=== PATIENT | female | born 1960 | race Caucasian/White ===

== ENCOUNTER 2018-05-04 23:57 | Emergency (ER) | payer OTHER ==
[~2018-05-04] VITALS: Ht 170.2 cm; Wt 92.7 kg
[2018-05-04 23:59] VITALS: BP 152/69
[2018-05-05] MEDS ORDERED: albuterol 2.5 MG/3 ML nebule NEB ONE (00:35)
== END 2018-05-05 00:45 | disposition left against medical advice (07) ==
LOC: ER 23:58
DX: R06.02 Shortness of breath (principal); Z53.21 Procedure and treatment not carried out due to patient leaving prior to being seen by health care provider

== ENCOUNTER 2018-09-22 23:58 | Emergency (ER) | payer MEDICARE, OTHER ==
[~2018-09-22] VITALS: Ht 172.7 cm; Wt 100.0 kg
[2018-09-23] MEDS ORDERED: LORazepam 1 MG tablet PO ONE (00:30)
[2018-09-23 01:00] LABS: BASOPHILS # (AUTO) 0.1 X10'3 (0-0.2); BASOPHILS % (AUTO) 0.6 % (0-1); EOSINOPHILS # (AUTO) 0.2 X10'3 (0-0.9); EOSINOPHILS % (AUTO) 1.9 % (0-6); HEMATOCRIT 41.8 % (35.0-45.0); HEMOGLOBIN 13.8 g/dl (12.0-16.0); LYMPHOCYTES # (AUTO) 2.2 X10'3 (1.1-4.8); LYMPHOCYTES % (AUTO) 21.5 % (21-51); MEAN CORPUSCULAR HEMOGLOBIN 27.2 PG (27.0-31.0); MEAN CORPUSCULAR VOLUME 82.6 FL (78-98); MEAN PLATELET VOLUME 8.8 FL (7.4-10.4); MONOCYTES # (AUTO) 0.7 X10'3 (0-0.9); MONOCYTES % (AUTO) 7.1 % (2-12); NEUTROPHILS % (AUTO) 68.9 % (42-75); PLATELET COUNT 197 X10'3 (140-440); RED BLOOD COUNT 5.06 X10'6 (4.20-5.60); RED CELL DISTRIBUTION WIDTH 14.7 % (11.5-14.5); WHITE BLOOD COUNT 10.2 X10'3 (4.5-11.0)
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
[2018-09-23 01:02] LABS: CLARITY,URINE CLEAR (Clear); COLOR,URINE YELLOW (Yellow); GLUCOSE, URINE NEGATIVE (Neg); KETONES,URINE NEGATIVE (Neg); LEUKOCYTE ESTERASE ,URINE NEGATIVE (Neg); NITRITES, URINE NEGATIVE (Neg); OCCULT BLOOD,URINE TRACE-INTACT (Neg); PROTEIN,URINE NEGATIVE (Neg); UROBILINOGEN,URINE 0.2 E.U/dL (0.2-1.0)
[2018-09-23 01:03] LABS: UA COLLECTION TYPE VOIDED
[2018-09-23 01:11] LABS: BACTERIA,URINE NONE SEEN /HPF (Neg); MUCUS STRANDS NONE SEEN /LPF (Neg); RBC,URINE NONE SEEN /HPF (0-2); SQUAMOUS EPITHELIAL CELL,UR NONE SEEN /LPF (FEW); WBC,URINE NONE SEEN /HPF (0-4)
[2018-09-23 01:12] LABS: ALANINE AMINOTRANSFERASE 30 U/L (12-78); ALBUMIN 3.8 G/DL (3.4-5.0); ALBUMIN/GLOBULIN RATIO 1.1 (1.1-1.5); ALKALINE PHOSPHATASE 114 IU/L (46-116); ANION GAP 9 (8-16); ASPARTATE AMINO TRANSFERASE 20 U/L (10-37); BILIRUBIN,TOTAL 0.5 MG/DL (0.1-1.0); BLOOD UREA NITROGEN 9 MG/DL (7-18); BUN/CREATININE RATIO 10.6 (6.6-38.0); CALCIUM 8.8 MG/DL (8.5-10.1); CHLORIDE 99 MMOL/L (99-107); CREATININE 0.85 MG/DL (0.40-0.90); GLUCOSE 101 MG/DL (70-104); POTASSIUM 3.6 MMOL/L (3.5-5.1); SODIUM 135 MMOL/L (135-145); TOTAL CARBON DIOXIDE 26.7 MMOL/L (24-32); TOTAL PROTEIN 7.4 G/DL (6.4-8.2); eGFR 69 ML/MIN
[2018-09-23 01:15] LABS: URINE AMPHETAMINE SCREEN NEGATIVE (Neg); URINE BARBITUATE SCREEN NEGATIVE (Neg); URINE BENZODIAZEPINES SCREEN NEGATIVE (Neg); URINE CANNABINOID SCREEN NEGATIVE (Neg); URINE COCAINE SCREEN NEGATIVE (Neg); URINE METHADONE SCREEN NEGATIVE (Neg); URINE OPIATE SCREEN NEGATIVE (Neg); URINE PHENCYCLIDINE SCREEN NEGATIVE (Neg)
[2018-09-23 01:21] LABS: ETHANOL 0.183 GM/DL (0.0-0.010)
[2018-09-23] MEDS ORDERED: MIRT15TA PO (01:31)
[2018-09-23] MEDS ORDERED: THY60T PO (01:35)
[2018-09-23] MEDS ORDERED: HYDR-3686 PO ×2 (01:35→20:56)
[2018-09-23] MEDS ORDERED: LORA0.5T PO (01:35)
[2018-09-23] MEDS ORDERED: TIZA4TAB11 PO (01:35)
[2018-09-23] MEDS ORDERED: tizanidine 4mg tablet PO PRN (02:45)
--- NOTE | 2018-09-23 03:06 | NUR ---
The patient appears to be sleeping
--- NOTE | 2018-09-23 05:10 | NUR ---
The patient has been sleeping well but was up one time to use the bathroom.
[2018-09-23] MEDS: LORazepam 0.5 MG tablet PO SCH ×2 (07:25→19:43)
[2018-09-23] MEDS ORDERED: thyroid, pork 30mg tablet PO SCH (08:00)
[2018-09-23] MEDS: hydrOXYzine 25 MG tablet PO PRN ×2 (10:49→19:43)
[2018-09-23 17:36] VITALS: BP 129/86
--- NOTE | 2018-09-23 20:01 | NUR ---
PT COOPERATIVE WITH NURSING AND PSYCH ASSESSMENT. SHE IS A&OX4 AND APPROPRIATE AND WELL SPOKEN AND ABLE TO DETAIL HER PAST 5 MONTHS WHICH IS THE TIME FRAM SHE HAS BEEN DEALING WITH DEPRESSION, MENTAL HEALTH CRISIS, AND THOUGHTS OF SELF HARM. PT HAS THERAPIST AND WAS INPATIENT AT [facility] A MONTH AGO FOR MENTAL HEALTH HOLD. SHE REPORTS NO SIGNIFICANT MENTAL HEALTH HISTORY IN PAST OTHER THAT SOEM EPISODES OF DEPRESSION. [facility] HERE TO ESCORT PT TO THEIR UNIT FOR INVOLUNTARY HOLD.
[2018-09-23] MEDS ORDERED: TRAZ-251 PO (20:55)
[2018-09-23] MEDS ORDERED: MELA3TAB PO (20:58)
[2018-09-23] MEDS ORDERED: mirtazapine 15mg tablet PO SCH (21:00)
== END 2018-09-23 20:15 ==
LOC: ER 23:59
DX: F32.9 Major depressive disorder, single episode, unspecified (principal); G35 Multiple sclerosis; F41.0 Panic disorder [episodic paroxysmal anxiety]; Z79.899 Other long term (current) drug therapy
CPT/HCPCS: 36415; 80053; 80305; 80320; 81001; 84443; 85025; 99285; Q0177

== ENCOUNTER 2018-09-23 16:20 | Inpatient (IN) | payer MEDICARE, OTHER | END 2018-09-28 12:05 | disposition home or self-care (01) | LOC: ADULT MH 16:20 | DX: F32.9 Major depressive disorder, single episode, unspecified (principal); F50.9 Eating disorder, unspecified; F43.10 Post-traumatic stress disorder, unspecified; E06.3 Autoimmune thyroiditis; G35 Multiple sclerosis ==

== ENCOUNTER 2018-12-21 12:42 | Day surgery (SDC) | payer MEDICARE ==
[~2018-12-21] VITALS: Ht 170.2 cm; Wt 95.5 kg
[~2018-12-21 12:42] MED LIST: LORA0.5T PO; MIRT-67 PO; THY60T PO; TIZA4TAB11 PO; TRAZ-219 PO
[2018-12-21 12:52] VITALS: BP 147/74
[2018-12-21] MEDS ORDERED: MIDAZolam 5mg/5ml vial ONE (12:54)
[2018-12-21] MEDS ORDERED: fentaNYL/PF 50MCG/1 ML 2ML syringe ONE (12:54)
[2018-12-21] MEDS ORDERED: METF500T PO (12:59)
[2018-12-21] MEDS ORDERED: MIRT45TA83 PO (13:00)
[2018-12-21] MEDS ORDERED: LAMO100T89 PO (13:00)
[2018-12-21] MEDS ORDERED: [UNRECOGNIZED DRUG - OTHER] (13:02)
[2018-12-21] MEDS ORDERED: METO-411 PO (13:04)
[2018-12-21] MEDS ORDERED: TRAZ-219 PO (13:04)
[2018-12-21] MEDS ORDERED: CELE-193 PO (13:05)
[2018-12-21] MEDS ORDERED: TRIA1CAP6 PO (13:06)
[2018-12-21] MEDS ORDERED: TIZA4TAB11 PO (13:07)
[2018-12-21 14:00] VITALS: BP 136/62
[2018-12-21 14:10] VITALS: BP 112/63
[2018-12-21 14:20] VITALS: BP 118/69
[2018-12-21 14:30] VITALS: BP 121/74
== END 2018-12-21 14:44 | disposition home or self-care (01) ==
LOC: GI LAB 12:42
PROVIDERS: ATTEND Internal Medicine Gastroenterology
DX: Z12.11 Encounter for screening for malignant neoplasm of colon (principal); K63.89 Other specified diseases of intestine; K64.8 Other hemorrhoids
CPT/HCPCS: 99153; G0121; G0500; J2250; J3010; J7040; 45378; 99152; A4620

== ENCOUNTER 2019-03-28 18:50 | Inpatient (IN) | payer BC, MEDICARE ==
[~2019-03-28] VITALS: Ht 170.2 cm; Wt 89.5 kg
[~2019-03-28 18:50] MED LIST changes: +CELE-193 PO; +LAMO100T PO; -LORA0.5T PO; +METF500T PO; +METO-411 PO; -MIRT-67 PO; +MIRT45TA83 PO; +TRIA1CAP6 PO; +[UNRECOGNIZED DRUG - OTHER]
[2019-03-28] MEDS ORDERED: acetaminophen 325mg tablet PO ONE (19:00)
--- NOTE | 2019-03-28 19:15 | NUR ---
PATIENT'S PERINEAL AREA VERY REDDENED AND BLANCHES I DID NOT REMOVE DRESSING TO RIGHT FOOT
[2019-03-28 19:23] LABS: BASOPHILS # (AUTO) 0.1 X10'3 (0-0.2); BASOPHILS % (AUTO) 0.3 % (0-1); EOSINOPHILS # (AUTO) 0.1 X10'3 (0-0.9); EOSINOPHILS % (AUTO) 0.2 % (0-6); HEMATOCRIT 42.1 % (35.0-45.0); HEMOGLOBIN 14.2 g/dl (12.0-16.0); LYMPHOCYTES # (AUTO) 0.9 X10'3 (1.1-4.8); LYMPHOCYTES % (AUTO) 4.2 % (21-51); MEAN CORPUSCULAR HEMOGLOBIN 27.4 PG (27.0-31.0); MEAN CORPUSCULAR HGB CONC 33.6 g/dL (33.0-36.5); MEAN CORPUSCULAR VOLUME 81.4 FL (78-98); MEAN PLATELET VOLUME 8.3 FL (7.4-10.4); MONOCYTES # (AUTO) 0.9 X10'3 (0-0.9); MONOCYTES % (AUTO) 4.3 % (2-12); NEUTROPHILS # (AUTO) 19.8 X10'3 (1.8-7.7); PLATELET COUNT 220 X10'3 (140-440); RED BLOOD COUNT 5.17 X10'6 (4.20-5.60); RED CELL DISTRIBUTION WIDTH 15.1 % (11.5-14.5); WHITE BLOOD COUNT 21.7 X10'3 (4.5-11.0)
--- NOTE | 2019-03-28 19:28 | NUR ---
PATIENT UP TO BSC UNABLE TO VOID
[2019-03-28 19:34] LABS: ALANINE AMINOTRANSFERASE 20 U/L (12-78); ALBUMIN 3.8 G/DL (3.4-5.0); ALBUMIN/GLOBULIN RATIO 1.1 (1.1-1.5); ALKALINE PHOSPHATASE 110 IU/L (46-116); ANION GAP 9 (8-16); ASPARTATE AMINO TRANSFERASE 20 U/L (10-37); BLOOD UREA NITROGEN 10 MG/DL (7-18); BUN/CREATININE RATIO 8.4 (6.6-38.0); CALCIUM 8.5 MG/DL (8.5-10.1); CHLORIDE 100 MMOL/L (99-107); CREATININE 1.19 MG/DL (0.40-0.90); GLUCOSE 119 MG/DL (70-104); POTASSIUM 3.5 MMOL/L (3.5-5.1); SODIUM 138 MMOL/L (135-145); TOTAL CARBON DIOXIDE 28.8 MMOL/L (24-32); TOTAL PROTEIN 7.3 G/DL (6.4-8.2); eGFR 47 ML/MIN
[2019-03-28] MEDS ORDERED: normal saline 1000ml 1,000 ML IV ONE (19:35)
--- NOTE | 2019-03-28 19:43 | NUR ---
COOLED SALINE PER MD
[2019-03-28] MEDS ORDERED: normal saline 1000ML IV soln IV ONE (20:05)
[2019-03-28 20:28] LABS: CLARITY,URINE CLEAR (Clear); COLOR,URINE YELLOW (Yellow); GLUCOSE, URINE NEGATIVE (Neg); KETONES,URINE NEGATIVE (Neg); LEUKOCYTE ESTERASE ,URINE NEGATIVE (Neg); NITRITES, URINE NEGATIVE (Neg); OCCULT BLOOD,URINE NEGATIVE (Neg); PH,URINE 7.5 (4.8-8.0); PROTEIN,URINE NEGATIVE (Neg); UROBILINOGEN,URINE 0.2 E.U/dL (0.2-1.0)
[2019-03-28 20:37] LABS: UA COLLECTION TYPE STRAIGHT CATH
[2019-03-28] MEDS ORDERED: CefTRIAXone 2gm/D5W 50ml 50 ML IV ONE (20:40)
[2019-03-28] MEDS ORDERED: iohexol 350MG/ML 100ml bottle IV ONE (20:46)
--- NOTE | 2019-03-28 20:57 | NUR ---
DISCUSSED PLAN OF CARE WITH DR SY: HEAD CT AND CTA OF CHEST ORDERED
--- NOTE | 2019-03-28 21:01 | NUR ---
TO CT HEAD AND CTA CHEST
[2019-03-28] MEDS ORDERED: ibuprofen tablet 400 MG TABLET PO ONE (21:45)
[2019-03-28] MEDS ORDERED: HYDROcodone/acetaminophen 10/325mg tab PO PRN (21:50)
[2019-03-28] MEDS ORDERED: morphine 2 MG/ML inj. syringe IV PRN ×2 (21:50)
[2019-03-28] MEDS ORDERED: mag hydrox/Alum hydrox/simeth 30ml oral suspension PO PRN (21:50)
[2019-03-28] MEDS ORDERED: magnesium hydroxide 30ml (MOM) UD suspension PO PRN (21:50)
[2019-03-28] MEDS ORDERED: acetaminophen 325mg tablet PO PRN ×2 (21:50)
[2019-03-28] MEDS ORDERED: ondansetron/PF 4mg/2ml inj IV PRN (21:50)
[2019-03-28] MEDS ORDERED: HYDROcodone/acetaminophen 5mg/325mg tablet PO PRN (21:50)
[2019-03-28] MEDS ORDERED: BENZ1TAB7 PO (22:04)
[2019-03-28] MEDS ORDERED: LORA-269 PO (22:04)
[2019-03-28] MEDS ORDERED: RANI150C4 PO (22:04)
[2019-03-28] MEDS ORDERED: PRAM0.253 PO (22:04)
[2019-03-28] MEDS ORDERED: MIRT45TA83 PO (22:04)
[2019-03-28] MEDS ORDERED: METO-384 PO (22:04)
[2019-03-28] MEDS ORDERED: HYDR-3686 PO (22:04)
[2019-03-28] MEDS ORDERED: TRIA1CAP2 PO (22:04)
[2019-03-28] MEDS ORDERED: THYR120T14 PO (22:04)
[2019-03-28] MEDS ORDERED: OMEP40CA13 PO (22:04)
[2019-03-28] MEDS ORDERED: CELE-85 PO (22:30)
[2019-03-28] MEDS ORDERED: PRAM0.5T12 PO (22:38)
--- NOTE | 2019-03-28 22:56 | NUR ---
Patient in room [facility] 346. I have received report from NARGIS Barreto RN and had the opportunity to ask questions and assume patient care. Addendum: 03/28/19 at 2256 by Sarai Arenas RN Amended: Links added.
--- NOTE | 2019-03-28 22:57 | NUR ---
Received report from NARGIS Barreto RN. Pt. brought to room via SNOBSWAP. Pt denies pain at this time. Tele #18 put on pt. Will continue to monitor.
[2019-03-28 23:06] VITALS: BP 96/36
[2019-03-28] MEDS ORDERED: LORazepam 0.5 MG tablet PO PRN (23:25)
[2019-03-28] MEDS ORDERED: cyclobenzaprine 10mg tablet PO PRN (23:25)
[2019-03-28] MEDS ORDERED: hydrOXYzine 25 MG tablet PO PRN (23:25)
[2019-03-29 05:19] LABS: ALBUMIN 2.6 G/DL (3.4-5.0); ANION GAP 4 (8-16); BLOOD UREA NITROGEN 12 MG/DL (7-18); BUN/CREATININE RATIO 12.2 (6.6-38.0); CALCIUM 7.5 MG/DL (8.5-10.1); CHLORIDE 108 MMOL/L (99-107); CREATININE 0.98 MG/DL (0.40-0.90); GLUCOSE 90 MG/DL (70-104); POTASSIUM 3.2 MMOL/L (3.5-5.1); SODIUM 142 MMOL/L (135-145); TOTAL CARBON DIOXIDE 30.4 MMOL/L (24-32); eGFR 59 ML/MIN
[2019-03-29 05:21] LABS: BASOPHILS % (AUTO) 0.1 % (0-1); EOSINOPHILS % (AUTO) 0 % (0-6); HEMATOCRIT 34.2 % (35.0-45.0); HEMOGLOBIN 11.5 g/dl (12.0-16.0); LYMPHOCYTES # (AUTO) 1.8 X10'3 (1.1-4.8); LYMPHOCYTES % (AUTO) 10.9 % (21-51); MEAN CORPUSCULAR HGB CONC 33.6 g/dL (33.0-36.5); MEAN CORPUSCULAR VOLUME 83.2 FL (78-98); MEAN PLATELET VOLUME 8.6 FL (7.4-10.4); MONOCYTES # (AUTO) 0.7 X10'3 (0-0.9); MONOCYTES % (AUTO) 4.5 % (2-12); NEUTROPHILS # (AUTO) 13.7 X10'3 (1.8-7.7); NEUTROPHILS % (AUTO) 84.5 % (42-75); PLATELET COUNT 148 X10'3 (140-440); RED BLOOD COUNT 4.11 X10'6 (4.20-5.60); WHITE BLOOD COUNT 16.2 X10'3 (4.5-11.0)
--- NOTE | 2019-03-29 06:26 | NUR ---
Problems reprioritized. Patient report given, questions answered & plan of care reviewed with MEREDITH Cha. Addendum: 03/29/19 at 0626 by Sarai Arenas RN Amended: Links added.
--- NOTE | 2019-03-29 06:35 | NUR ---
Patient in room ALMA[facility] 346. I have received report from Alfonso and had the opportunity to ask questions and assume patient care. Addendum: 03/29/19 at 0636 by Steve LANDAVERDE Amended: Links added.
--- NOTE | 2019-03-29 06:36 | NUR ---
Patient in room ALMAZ 346. I have received report from MEREDITH HUSSEIN and had the opportunity to ask questions and assume patient care.
[2019-03-29 07:00] VITALS: BP 103/60
[2019-03-29 07:20] VITALS: BP 103/60
[2019-03-29] MEDS: celeCOXIB 100mg capsule PO SCH (07:48)
[2019-03-29] MEDS: mirtazapine 15mg tablet PO SCH (07:48)
[2019-03-29] MEDS: pantoprazole 40mg Tablet.DR PO SCH (07:49)
[2019-03-29] MEDS: famotidine 20mg tablet PO SCH ×2 (07:49→19:45)
[2019-03-29] MEDS: benztropine 1mg tablet PO SCH ×2 (07:50→19:45)
[2019-03-29] MEDS: pramipexole 0.25mg tablet PO SCH ×2 (07:52→19:45)
[2019-03-29] MEDS: lamoTRIgine 100mg tablet PO SCH ×2 (07:53→19:45)
[2019-03-29] MEDS: thyroid, pork 30mg tablet PO SCH (07:55)
[2019-03-29] MEDS: enoxaparin 40mg/0.4ml syringe SUBCUT SCH (07:55)
[2019-03-29] MEDS: CefTRIAXone/D5W-Rocephin 1gm 50 ML IV SCH (07:59)
[2019-03-29] MEDS: triamterene/HCTZ 37.5/25mg tablet PO SCH (08:00)
[2019-03-29] MEDS: metoprolol succinate 25mg (24-HOUR) SR. Tablet PO SCH (08:00)
[2019-03-29] MEDS: azithromycin/NS 500mg/250ml 250 ML IV SCH (09:13)
[2019-03-29] MEDS ORDERED: SUMAtriptan 25 MG tablet PO ONE (09:20)
[2019-03-29] MEDS ORDERED: SUMAtriptan 25 MG tablet PO PRN (09:25)
[2019-03-29] MEDS ORDERED: magnesium 4gm in 100ml NS 100 ML IV PRN (09:35)
[2019-03-29] MEDS ORDERED: magnesium 2GM in 50ml NS 50 ML IV PRN (09:35)
[2019-03-29] MEDS ORDERED: potassium CL 10mEq/100ml bag 100 ML IV PRN (09:35)
[2019-03-29] MEDS ORDERED: magnesium Cl slow-release 64mg tablet PO PRN (09:35)
[2019-03-29] MEDS ORDERED: potassium Cl 20 mEq SR tablet PO PRN (09:35)
[2019-03-29] MEDS ORDERED: pneumococcal 23-VAL P-sac vacc 25 mcg/0.5ml vial IMVAC ONE (10:00)
--- NOTE | 2019-03-29 10:21 | NUR ---
Student Medication Administration: For this medication-pass time frame, all medication were reviewed, dispensed, administered and documented per hospital policy by Steve, rehab nursing tech.
[2019-03-29] MEDS: potassium Cl 20 mEq SR tablet PO PRN ×3 (10:27→19:46)
--- NOTE | 2019-03-29 11:34 | NUR ---
Student documentation: I have reviewed and agree with all interventions, assessments performed and documented by Steve, manager student services.
--- NOTE | 2019-03-29 12:07 | NUR ---
Problems reprioritized. Patient report given, questions answered & plan of care reviewed with Gloria(student nurse). Addendum: 03/29/19 at 1207 by Steve LANDAVERDE Amended: Links added.
[2019-03-29 12:28] VITALS: BP 109/45
[2019-03-29] MEDS ORDERED: metFORMIN 500mg tablet PO SCH (17:00)
--- NOTE | 2019-03-29 17:39 | NUR ---
reviewed director school of nursing charting
--- NOTE | 2019-03-29 18:39 | NUR ---
Problems reprioritized. Patient report given, questions answered & plan of care reviewed with MEREDITH SALDAÑA.
--- NOTE | 2019-03-29 18:40 | NUR ---
Patient in room [facility] 346. I have received report from SHEBA HARPER and had the opportunity to ask questions and assume patient care.
[2019-03-29 20:00] VITALS: BP 115/51
[2019-03-29] MEDS ORDERED: traZODone 50mg tablet PO SCH (21:00)
[2019-03-30] VITALS: BP 110/47
[2019-03-30 05:16] LABS: BASOPHILS % (AUTO) 0.3 % (0-1); EOSINOPHILS # (AUTO) 0.1 X10'3 (0-0.9); EOSINOPHILS % (AUTO) 0.7 % (0-6); HEMATOCRIT 32.7 % (35.0-45.0); HEMOGLOBIN 10.9 g/dl (12.0-16.0); LYMPHOCYTES # (AUTO) 1.5 X10'3 (1.1-4.8); MEAN CORPUSCULAR HEMOGLOBIN 27.7 PG (27.0-31.0); MEAN CORPUSCULAR HGB CONC 33.3 g/dL (33.0-36.5); MEAN CORPUSCULAR VOLUME 83.2 FL (78-98); MEAN PLATELET VOLUME 8.7 FL (7.4-10.4); MONOCYTES # (AUTO) 0.5 X10'3 (0-0.9); MONOCYTES % (AUTO) 6.1 % (2-12); NEUTROPHILS # (AUTO) 6.7 X10'3 (1.8-7.7); NEUTROPHILS % (AUTO) 75.9 % (42-75); PLATELET COUNT 139 X10'3 (140-440); RED BLOOD COUNT 3.92 X10'6 (4.20-5.60); RED CELL DISTRIBUTION WIDTH 15.1 % (11.5-14.5); WHITE BLOOD COUNT 8.8 X10'3 (4.5-11.0)
[2019-03-30 05:32] LABS: ALBUMIN 2.5 G/DL (3.4-5.0); ANION GAP 7 (8-16); BLOOD UREA NITROGEN 16 MG/DL (7-18); CALCIUM 8.5 MG/DL (8.5-10.1); CHLORIDE 108 MMOL/L (99-107); CREATININE 0.84 MG/DL (0.40-0.90); GLUCOSE 88 MG/DL (70-104); POTASSIUM 3.8 MMOL/L (3.5-5.1); SODIUM 141 MMOL/L (135-145); TOTAL CARBON DIOXIDE 25.9 MMOL/L (24-32); eGFR 70 ML/MIN
--- NOTE | 2019-03-30 06:30 | NUR ---
Problems reprioritized. Patient report given, questions answered & plan of care reviewed with EDDIE HARPER.
[2019-03-30 07:00] VITALS: BP 101/50
[2019-03-30 07:15] VITALS: BP 97/54
--- NOTE | 2019-03-30 07:30 | NUR ---
PT. STATES PMX OF LIPIDEMIA. Addendum: 03/30/19 at 0737 by Arabella Marley RN Amended: Links added.
[2019-03-30] MEDS: pantoprazole 40mg Tablet.DR PO SCH (07:38)
[2019-03-30] MEDS: CefTRIAXone/D5W-Rocephin 1gm 50 ML IV SCH (07:38)
[2019-03-30] MEDS: triamterene/HCTZ 37.5/25mg tablet PO SCH (07:39)
[2019-03-30] MEDS: lamoTRIgine 100mg tablet PO SCH (07:39)
[2019-03-30] MEDS: celeCOXIB 100mg capsule PO SCH (07:39)
[2019-03-30] MEDS: pramipexole 0.25mg tablet PO SCH (07:40)
[2019-03-30] MEDS: famotidine 20mg tablet PO SCH (07:40)
[2019-03-30] MEDS: metoprolol succinate 25mg (24-HOUR) SR. Tablet PO SCH (07:41)
[2019-03-30] MEDS: enoxaparin 40mg/0.4ml syringe SUBCUT SCH (07:42)
[2019-03-30] MEDS: thyroid, pork 30mg tablet PO SCH (07:46)
[2019-03-30] MEDS: azithromycin/NS 500mg/250ml 250 ML IV SCH (07:47)
[2019-03-30] MEDS: benztropine 1mg tablet PO SCH (07:48)
[2019-03-30] MEDS: mirtazapine 15mg tablet PO SCH (07:48)
[2019-03-30] MEDS ORDERED: pneumococcal 23-VAL P-sac vacc 25 mcg/0.5ml vial IMVAC ONE (10:00)
[2019-03-30 12:00] VITALS: BP 110/50
[2019-03-30] MEDS ORDERED: CEFD300C3 PO (12:13)
[2019-03-30] MEDS ORDERED: AZIT-63 PO (12:13)
[2019-03-30] MEDS ORDERED: ALBU18HF2 IH (12:13)
--- NOTE | 2019-03-30 13:10 | NUR ---
Patient discharged in a stable condition. aware that antibiotics, and inhaler are waiting for her a the pharmacy. Aware to continue taking a probiotic for 7 days after antibiotics use. She states she will continue to use her IS. IV DC'd, pressure bandage applied, no s/sx bleeding. Pt. gathered all of her belongings and took them home with her. Reviewed discharge paperwork with pt. She states she will follow up with her PCP and ask for a follow up chest CT/ x-ray. An excuse from work was provided for the pt. for three days.
[2019-03-30] MEDS ORDERED: lactobacillus rhamnosus 10,000 MMU CELLS/CAPSULE PO SCH (20:00)
[2019-03-31] MEDS ORDERED: azithromycin 250mg tablet PO SCH (08:00)
== END 2019-03-30 13:07 | disposition home or self-care (01) | DRG 871 ==
LOC: ER 18:51 → ED HOLD 22:13 → SUR 3N 22:25
PROVIDERS: ADMIT Internal Medicine; ATTEND Hospitalist
DX: A41.9 Sepsis, unspecified organism (principal); J18.9 Pneumonia, unspecified organism; G35 Multiple sclerosis; K21.9 Gastro-esophageal reflux disease without esophagitis; G47.00 Insomnia, unspecified; I10 Essential (primary) hypertension; E03.9 Hypothyroidism, unspecified; F41.9 Anxiety disorder, unspecified; G89.29 Other chronic pain; Z80.3 Family history of malignant neoplasm of breast; Z85.72 Personal history of non-Hodgkin lymphomas; Z85.820 Personal history of malignant melanoma of skin
CPT/HCPCS: 36415; 70450; 71045; 71275; 80048; 80053; 81003; 82948; 83605; 84145; 85025; 87040; 87081; 96361; 96365; 99285; G0378; J0456; J0696; J1650; J7030; Q9967; Z7610

== ENCOUNTER 2019-10-03 02:22 | Emergency (ER) | payer BC, MEDICARE ==
[~2019-10-03] VITALS: Ht 170.2 cm; Wt 97.7 kg
[~2019-10-03 02:22] MED LIST changes: +ALBU18HF2 IH; +BENZ1TAB7 PO; -CELE-193 PO; +CELE-85 PO; +HYDR-3686 PO; +LORA-269 PO; +METO-384 PO; -METO-411 PO; +OMEP40CA13 PO; +PRAM0.5T12 PO; +RANI150C4 PO; -THY60T PO; +THYR120T14 PO; -TRAZ-219 PO; +TRAZ-256 PO; +TRIA1CAP2 PO; -TRIA1CAP6 PO; -[UNRECOGNIZED DRUG - OTHER]
[2019-10-03 03:06] LABS: BASOPHILS % (AUTO) 0.8 % (0-1); EOSINOPHILS % (AUTO) 0.7 % (0-6); HEMOGLOBIN 11.3 g/dl (12.0-16.0); LYMPHOCYTES % (AUTO) 34.6 % (21-51); MEAN CORPUSCULAR HEMOGLOBIN 22.2 PG (27.0-31.0); MEAN CORPUSCULAR HGB CONC 31.5 g/dL (33.0-36.5); MEAN CORPUSCULAR VOLUME 70.6 FL (78-98); MEAN PLATELET VOLUME 8.2 FL (7.4-10.4); MONOCYTES # (AUTO) 0.5 X10'3 (0-0.9); MONOCYTES % (AUTO) 8.5 % (2-12); NEUTROPHILS # (AUTO) 3.2 X10'3 (1.8-7.7); NEUTROPHILS % (AUTO) 55.4 % (42-75); PLATELET COUNT 221 X10'3 (140-440); RED CELL DISTRIBUTION WIDTH 17.8 % (11.5-14.5); WHITE BLOOD COUNT 5.8 X10'3 (4.5-11.0)
[2019-10-03 03:07] LABS: URINE HCG NEGATIVE (NEG)
[2019-10-03] MEDS ORDERED: MELA1TAB17 PO (03:12)
[2019-10-03] MEDS ORDERED: MELA5TAB12 PO (03:14)
--- NOTE | 2019-10-03 03:18 | NUR ---
PT STATES SHE IS ON DAY 10 OF A REXULTI 'STARTER PACK' GIVEN TO HER BY HER PSYCHIATRIST. SHE STATES THAT SHE FEELS THE REXULTI MAY BE A LARGE PART OF HER SYMPTOMS AT THIS TIME. THE INITIAL DOSE WAS 0.5 MG INCREASES TO 1.0 MG
[2019-10-03 03:22] LABS: URINE AMPHETAMINE SCREEN NEGATIVE (Neg); URINE BARBITUATE SCREEN NEGATIVE (Neg); URINE BENZODIAZEPINES SCREEN NEGATIVE (Neg); URINE CANNABINOID SCREEN NEGATIVE (Neg); URINE COCAINE SCREEN NEGATIVE (Neg); URINE METHADONE SCREEN NEGATIVE (Neg); URINE OPIATE SCREEN NEGATIVE (Neg); URINE PHENCYCLIDINE SCREEN NEGATIVE (Neg)
[2019-10-03 03:23] LABS: ALANINE AMINOTRANSFERASE 38 U/L (12-78); ALBUMIN/GLOBULIN RATIO 1.3 (1.1-1.5); ALKALINE PHOSPHATASE 124 IU/L (46-116); ANION GAP 6 (8-16); ASPARTATE AMINO TRANSFERASE 25 U/L (10-37); BILIRUBIN,TOTAL 0.3 MG/DL (0.1-1.0); BLOOD UREA NITROGEN 13 MG/DL (7-18); BUN/CREATININE RATIO 13.8 (6.6-38.0); CALCIUM 8.6 MG/DL (8.5-10.1); CHLORIDE 104 MMOL/L (99-107); CREATININE 0.94 MG/DL (0.40-0.90); ETHANOL 0.138 GM/DL (0.0-0.010); GLUCOSE 103 MG/DL (70-104); POTASSIUM 3.7 MMOL/L (3.5-5.1); SODIUM 140 MMOL/L (135-145); TOTAL CARBON DIOXIDE 30.5 MMOL/L (24-32); TOTAL PROTEIN 7.2 G/DL (6.4-8.2); eGFR 62 ML/MIN
--- NOTE | 2019-10-03 03:27 | NUR ---
PT STATES SHE IS NOT DIABETIC, BUT TAKES METFORMIN FOR 'INSULIN RESISTANCE'
[2019-10-03] MEDS ORDERED: tizanidine 4mg tablet PO PRN (04:30)
[2019-10-03] MEDS ORDERED: LORazepam 0.5 MG tablet PO PRN (04:30)
[2019-10-03] MEDS ORDERED: albuterol 2.5 MG/3 ML nebule NEB PRN (04:30)
--- NOTE | 2019-10-03 04:55 | NUR ---
Packet faxed to [facility].
[2019-10-03 05:46] VITALS: BP 117/59
--- NOTE | 2019-10-03 06:52 | NUR ---
Patient sleeping supine. No distress observed. Continue to monitor.
[2019-10-03] MEDS ORDERED: metFORMIN 500mg tablet PO SCH (07:00)
[2019-10-03 07:07] LABS: CLARITY,URINE CLEAR (Clear); COLOR,URINE YELLOW (Yellow); GLUCOSE, URINE NEGATIVE (Neg); KETONES,URINE NEGATIVE (Neg); LEUKOCYTE ESTERASE ,URINE NEGATIVE (Neg); NITRITES, URINE NEGATIVE (Neg); OCCULT BLOOD,URINE NEGATIVE (Neg); PH,URINE 5.5 (4.8-8.0); PROTEIN,URINE NEGATIVE (Neg); UROBILINOGEN,URINE 0.2 E.U/dL (0.2-1.0)
[2019-10-03 07:10] LABS: UA COLLECTION TYPE CLN CATCH MIDSTREAM
[2019-10-03] MEDS ORDERED: metoprolol succinate 25mg (24-HOUR) SR. Tablet PO SCH (08:00)
[2019-10-03] MEDS ORDERED: lamoTRIgine 100mg tablet PO SCH (08:00)
[2019-10-03] MEDS ORDERED: triamterene/HCTZ 37.5/25mg tablet PO SCH (08:00)
[2019-10-03] MEDS ORDERED: thyroid, pork 30mg tablet PO SCH (08:00)
[2019-10-03] MEDS ORDERED: [UNRECOGNIZED DRUG - OTHER] PO SCH (08:00)
[2019-10-03] MEDS ORDERED: TRIAMTERENE PO SCH (08:00)
[2019-10-03] MEDS ORDERED: ibuprofen 200mg tablet PO SCH (08:00)
[2019-10-03] MEDS ORDERED: HYDROCHLOROTHIAZID PO SCH (08:00)
--- NOTE | 2019-10-03 09:36 | NUR ---
PT'S FRIEND DEDE [phone]
--- NOTE | 2019-10-03 10:45 | NUR ---
Bonny GUTIERRES, speaking with patient. Continue to monitor.
[2019-10-03] MEDS ORDERED: benztropine 1mg tablet PO SCH (21:00)
[2019-10-03] MEDS ORDERED: Melatonin 3mg tablet PO SCH (21:00)
[2019-10-03] MEDS ORDERED: mirtazapine 15mg tablet PO SCH (21:00)
[2019-10-03] MEDS ORDERED: traZODone 50mg tablet PO SCH (21:00)
[2019-10-03] MEDS ORDERED: pramipexole 0.25mg tablet PO SCH (21:00)
== END 2019-10-03 11:52 | disposition home or self-care (01) ==
LOC: ER 02:23
DX: F32.9 Major depressive disorder, single episode, unspecified (principal); R45.851 Suicidal ideations; G35 Multiple sclerosis; I10 Essential (primary) hypertension; K21.9 Gastro-esophageal reflux disease without esophagitis; F41.9 Anxiety disorder, unspecified; F17.200 Nicotine dependence, unspecified, uncomplicated; Z72.89 Other problems related to lifestyle; Z79.899 Other long term (current) drug therapy
CPT/HCPCS: 36415; 80053; 80305; 80320; 81003; 81025; 85025; 99285

== ENCOUNTER 2020-06-26 22:36 | Emergency (ER) | payer BC, MEDICARE ==
[~2020-06-26] VITALS: Ht 170.2 cm; Wt 122.0 kg
[~2020-06-26 22:36] MED LIST changes: -HYDR-3686 PO; +MELA5TAB12 PO; -OMEP40CA13 PO; -RANI150C4 PO
[2020-06-26] MEDS ORDERED: TETanus/Pertussis (Acell)/Diphther VAC/PF (Tdap-Adult) 0.5ml syringe IMVAC ONE (22:50)
[2020-06-26 23:11] LABS: BASOPHILS # (AUTO) 0.1 X10'3 (0-0.2); BASOPHILS % (AUTO) 0.9 % (0-1); EOSINOPHILS % (AUTO) 0.5 % (0-6); HEMATOCRIT 38.1 % (35.0-45.0); HEMOGLOBIN 12.8 g/dl (12.0-16.0); LYMPHOCYTES # (AUTO) 2.1 X10'3 (1.1-4.8); LYMPHOCYTES % (AUTO) 35.6 % (21-51); MEAN CORPUSCULAR HEMOGLOBIN 30.1 PG (27.0-31.0); MEAN CORPUSCULAR HGB CONC 33.7 g/dL (33.0-36.5); MEAN CORPUSCULAR VOLUME 89.2 FL (78-98); MEAN PLATELET VOLUME 8.8 FL (7.4-10.4); MONOCYTES # (AUTO) 0.6 X10'3 (0-0.9); MONOCYTES % (AUTO) 9.5 % (2-12); NEUTROPHILS # (AUTO) 3.2 X10'3 (1.8-7.7); NEUTROPHILS % (AUTO) 53.5 % (42-75); PLATELET COUNT 170 X10'3 (140-440); RED BLOOD COUNT 4.27 X10'6 (4.20-5.60); WHITE BLOOD COUNT 5.9 X10'3 (4.5-11.0)
[2020-06-26 23:25] LABS: ALANINE AMINOTRANSFERASE 41 U/L (12-78); ALBUMIN 3.8 G/DL (3.4-5.0); ALBUMIN/GLOBULIN RATIO 1.3 (1.1-1.5); ALKALINE PHOSPHATASE 118 IU/L (46-116); ANION GAP 8 (8-16); ASPARTATE AMINO TRANSFERASE 33 U/L (10-37); BILIRUBIN,TOTAL 0.3 MG/DL (0.1-1.0); BLOOD UREA NITROGEN 12 MG/DL (7-18); BUN/CREATININE RATIO 12.2 (6.6-38.0); CALCIUM 8.9 MG/DL (8.5-10.1); CHLORIDE 104 MMOL/L (99-107); CREATININE 0.98 MG/DL (0.40-0.90); ETHANOL 0.251 GM/DL (0.0-0.010); GLUCOSE 111 MG/DL (70-104); POTASSIUM 3.4 MMOL/L (3.5-5.1); SODIUM 143 MMOL/L (135-145); TOTAL CARBON DIOXIDE 30.8 MMOL/L (24-32); TOTAL PROTEIN 6.8 G/DL (6.4-8.2); eGFR 58 ML/MIN
[2020-06-27 00:12] VITALS: BP 127/80
== END 2020-06-26 23:45 | disposition home or self-care (01) ==
LOC: ER 22:37
DX: S00.11XA Contusion of right eyelid and periocular area, initial encounter (principal); F10.129 Alcohol abuse with intoxication, unspecified; I10 Essential (primary) hypertension; K21.9 Gastro-esophageal reflux disease without esophagitis; G89.29 Other chronic pain; F41.9 Anxiety disorder, unspecified; F32.9 Major depressive disorder, single episode, unspecified; Z20.3 Contact with and (suspected) exposure to rabies; Z86.2 Personal history of diseases of the blood and blood-forming organs and certain disorders involving the immune mechanism; Z72.89 Other problems related to lifestyle; Z79.899 Other long term (current) drug therapy; W19.XXXA Unspecified fall, initial encounter; Y93.89 Activity, other specified; Y92.89 Other specified places as the place of occurrence of the external cause; Y99.8 Other external cause status; Y90.0 Blood alcohol level of less than 20 mg/100 ml
CPT/HCPCS: 36415; 70450; 70486; 71045; 72125; 80053; 80320; 85025; 90471; 90715; 93005; 99285

== ENCOUNTER 2020-07-13 19:55 | Emergency (ER) | payer BC, MEDICARE ==
[~2020-07-13] VITALS: Ht 170.2 cm; Wt 104.1 kg
--- NOTE | 2020-07-13 21:30 | NUR ---
pt states she has had her bag beside her tonight, and 3 times she wanted to pull out her medication and od on it, but she didn't
[2020-07-13 21:39] LABS: URINE HCG NEGATIVE (NEG)
[2020-07-13] MEDS ORDERED: POTA10TA10 PO (21:39)
[2020-07-13] MEDS ORDERED: TORS20TA3 PO ×2 (21:39)
[2020-07-13] MEDS ORDERED: LISI-790 PO (21:39)
[2020-07-13] MEDS ORDERED: LISI20TA28 PO (21:39)
[2020-07-13] MEDS ORDERED: estrogen TOP (21:39)
[2020-07-13] MEDS ORDERED: MIRT-116 PO (21:39)
[2020-07-13 21:41] LABS: BASOPHILS # (AUTO) 0.1 X10'3 (0-0.2); EOSINOPHILS % (AUTO) 0.5 % (0-6); HEMOGLOBIN 13.4 g/dl (12.0-16.0); LYMPHOCYTES # (AUTO) 1.2 X10'3 (1.1-4.8); LYMPHOCYTES % (AUTO) 17.6 % (21-51); MEAN CORPUSCULAR HEMOGLOBIN 30.2 PG (27.0-31.0); MEAN CORPUSCULAR HGB CONC 33.5 g/dL (33.0-36.5); MEAN CORPUSCULAR VOLUME 89.9 FL (78-98); MEAN PLATELET VOLUME 9.2 FL (7.4-10.4); MONOCYTES # (AUTO) 0.5 X10'3 (0-0.9); NEUTROPHILS # (AUTO) 4.9 X10'3 (1.8-7.7); NEUTROPHILS % (AUTO) 73.9 % (42-75); PLATELET COUNT 153 X10'3 (140-440); RED BLOOD COUNT 4.45 X10'6 (4.20-5.60); RED CELL DISTRIBUTION WIDTH 13.8 % (11.5-14.5); WHITE BLOOD COUNT 6.6 X10'3 (4.5-11.0)
[2020-07-13 21:46] LABS: ALANINE AMINOTRANSFERASE 37 U/L (12-78); ALBUMIN 3.7 G/DL (3.4-5.0); ALBUMIN/GLOBULIN RATIO 1.1 (1.1-1.5); ALKALINE PHOSPHATASE 150 IU/L (46-116); ANION GAP 8 (8-16); ASPARTATE AMINO TRANSFERASE 22 U/L (10-37); BILIRUBIN,TOTAL 0.3 MG/DL (0.1-1.0); BLOOD UREA NITROGEN 14 MG/DL (7-18); BUN/CREATININE RATIO 14.6 (6.6-38.0); CALCIUM 8.7 MG/DL (8.5-10.1); CHLORIDE 102 MMOL/L (99-107); CREATININE 0.96 MG/DL (0.40-0.90); GLUCOSE 106 MG/DL (70-104); POTASSIUM 4.1 MMOL/L (3.5-5.1); SODIUM 141 MMOL/L (135-145); TOTAL CARBON DIOXIDE 31.3 MMOL/L (24-32); TOTAL PROTEIN 7.1 G/DL (6.4-8.2); eGFR 60 ML/MIN
[2020-07-13 21:51] LABS: URINE AMPHETAMINE SCREEN NEGATIVE (Neg); URINE BARBITUATE SCREEN NEGATIVE (Neg); URINE BENZODIAZEPINES SCREEN NEGATIVE (Neg); URINE CANNABINOID SCREEN NEGATIVE (Neg); URINE COCAINE SCREEN NEGATIVE (Neg); URINE METHADONE SCREEN NEGATIVE (Neg); URINE OPIATE SCREEN NEGATIVE (Neg); URINE PHENCYCLIDINE SCREEN NEGATIVE (Neg)
--- NOTE | 2020-07-13 21:54 | NUR ---
Received report from MEREDITH Khan.
[2020-07-13 21:55] LABS: ETHANOL < 0.010 GM/DL (0.0-0.010)
--- NOTE | 2020-07-13 21:57 | NUR ---
Patient is brought to bed 25.
[2020-07-13] MEDS ORDERED: GABA600T13 PO (22:08)
[2020-07-13] MEDS ORDERED: LORazepam 0.5 MG tablet PO ONE (22:25)
[2020-07-13] MEDS ORDERED: tizanidine 4mg tablet PO ONE (22:25)
[2020-07-13] MEDS ORDERED: traZODone 50mg tablet PO ONE (22:25)
[2020-07-13] MEDS ORDERED: tizanidine 4mg tablet PO PRN (22:50)
[2020-07-13] MEDS ORDERED: LORazepam 0.5 MG tablet PO PRN (22:55)
--- NOTE | 2020-07-13 23:43 | NUR ---
Patient is sleeping quietly, in view from nurses station.
[2020-07-13] MEDS ORDERED: ESTROGEN TOP (23:45)
[2020-07-14] MEDS ORDERED: traZODone 50mg tablet PO ONE (01:50)
[2020-07-14] MEDS ORDERED: LORazepam 1 MG tablet PO ONE (04:20)
--- NOTE | 2020-07-14 05:11 | NUR ---
Patient complains of some stomach cramping, anxiety, inability to sleep. Ativan 1mg given PO. This technical document writer spoke with Dr. Armstrong, he chooses at this time not to order an anti-diarrheal at this time. Patient has a recent history of purging by taking excessive amounts of stool softener.
[2020-07-14 05:29] VITALS: BP_DIAS 51
--- NOTE | 2020-07-14 05:48 | NUR ---
HX: Mika's, Mild pulmonary HTN, Mild Asthma, MS, Reuxeny (Gastric) Bypass, Ankle and knee surgeries, Valerie-Danlos (connective tissue disorder,) Lipederma?, Complex PTSD, Anxiety Disorder, Major Depressive Disorder, patient also states eating disorder.
--- NOTE | 2020-07-14 06:53 | NUR ---
Packet faxed to [facility]
--- NOTE | 2020-07-14 06:53 | NUR ---
Patient resting quietly, no s/s of distress, in view of nursing station.
[2020-07-14] MEDS ORDERED: TORSEMIDE 20 MG PO SCH ×2 (08:00→21:00)
[2020-07-14] MEDS ORDERED: lisinopril 20mg tablet PO SCH (08:00)
[2020-07-14] MEDS ORDERED: metFORMIN 500mg tablet PO SCH (08:00)
[2020-07-14] MEDS ORDERED: [UNRECOGNIZED DRUG - OTHER] TOP SCH (08:00)
[2020-07-14] MEDS ORDERED: metoprolol succinate 25mg (24-HOUR) SR. Tablet PO SCH (08:00)
[2020-07-14] MEDS ORDERED: lisinopril 5mg tablet PO SCH (08:00)
[2020-07-14] MEDS ORDERED: lamoTRIgine 100mg tablet PO SCH (08:00)
[2020-07-14] MEDS ORDERED: thyroid, pork 30mg tablet PO SCH (08:00)
[2020-07-14] MEDS ORDERED: potassium Cl 20 mEq SR tablet PO SCH (08:00)
[2020-07-14 08:25] VITALS: BP_SYST 120
--- NOTE | 2020-07-14 08:42 | NUR ---
Patient is awake. Consumed 100% of breakfast. Cooperative with medication administration.
--- NOTE | 2020-07-14 09:30 | NUR ---
rcvd report from Peyton RN, pt jsut ambulated to the bathroom, no needs at this time, sitting at bedside, awake and calm
--- NOTE | 2020-07-14 10:30 | NUR ---
pt supine in bed, awake, calm, no needs at this time
--- NOTE | 2020-07-14 11:25 | NUR ---
refaxed packet to [facility] office, did not rcv, per Jose
--- NOTE | 2020-07-14 11:30 | NUR ---
Spoke to pt, she has no needs at this time, awaiting eval
--- NOTE | 2020-07-14 12:30 | NUR ---
pt supine in bed, eyes open, regular breathing present, no needs at this time
--- NOTE | 2020-07-14 13:30 | NUR ---
pt sitting at bedside, no needs at this time
--- NOTE | 2020-07-14 15:16 | NUR ---
called cab for pt
[2020-07-14] MEDS ORDERED: pramipexole 0.25mg tablet PO SCH (21:00)
[2020-07-14] MEDS ORDERED: mirtazapine 15mg tablet PO SCH (21:00)
[2020-07-14] MEDS ORDERED: gabapentin 300mg capsule PO SCH (21:00)
[2020-07-14] MEDS ORDERED: Melatonin 3mg tablet PO SCH (21:00)
[2020-07-14] MEDS ORDERED: traZODone 50mg tablet PO SCH (21:00)
== END 2020-07-14 16:38 ==
LOC: ER 19:56
DX: R45.851 Suicidal ideations (principal); F32.9 Major depressive disorder, single episode, unspecified; I10 Essential (primary) hypertension; K21.9 Gastro-esophageal reflux disease without esophagitis; G89.29 Other chronic pain; F41.9 Anxiety disorder, unspecified; Z86.2 Personal history of diseases of the blood and blood-forming organs and certain disorders involving the immune mechanism; Z72.89 Other problems related to lifestyle; Z79.899 Other long term (current) drug therapy
CPT/HCPCS: 36415; 80053; 80305; 80320; 81025; 84439; 84443; 84480; 85025; 99285

== ENCOUNTER 2020-09-30 01:41 | Inpatient (IN) | payer BC, MEDICARE ==
[~2020-09-30] VITALS: Ht 170.2 cm; Wt 109.2 kg
[~2020-09-30 01:41] MED LIST changes: -ALBU18HF2 IH; -BENZ1TAB7 PO; +ESTROGEN TOP; +GABA600T13 PO; +LISI-790 PO; +LISI20TA28 PO; +MIRT-116 PO; -MIRT45TA83 PO; +POTA10TA10 PO; +TORS20TA3 PO; -TRIA1CAP2 PO
[2020-09-30] MEDS ORDERED: normal saline 1000ML IV soln IVB ONE (02:10)
[2020-09-30] MEDS ORDERED: diphenhydrAMINE 50 mg/ml inj IV ONE (02:10)
[2020-09-30] MEDS ORDERED: LORazepam 2 mg/ml vial IV ONE (02:10)
[2020-09-30] MEDS ORDERED: metoclopramide 5 mg/ml inj IV ONE (02:10)
--- NOTE | 2020-09-30 02:13 | NUR ---
Pt up to walk to BR. Ambulating with steady gait. Reports need to have BM.
[2020-09-30 02:41] LABS: BASOPHILS % (AUTO) 0.1 % (0-1); CLARITY,URINE CLEAR (Clear); COLOR,URINE YELLOW (Yellow); EOSINOPHILS % (AUTO) 0.1 % (0-6); GLUCOSE, URINE NEGATIVE (Neg); HEMATOCRIT 43.6 % (35.0-45.0); HEMOGLOBIN 14.6 g/dl (12.0-16.0); KETONES,URINE TRACE mg/dl (Neg); LEUKOCYTE ESTERASE ,URINE NEGATIVE (Neg); LYMPHOCYTES # (AUTO) 0.3 X10'3 (1.1-4.8); LYMPHOCYTES % (AUTO) 2.2 % (21-51); MEAN CORPUSCULAR HEMOGLOBIN 30.3 PG (27.0-31.0); MEAN CORPUSCULAR HGB CONC 33.5 g/dL (33.0-36.5); MEAN CORPUSCULAR VOLUME 90.5 FL (78-98); MEAN PLATELET VOLUME 9.7 FL (7.4-10.4); MONOCYTES # (AUTO) 0.8 X10'3 (0-0.9); MONOCYTES % (AUTO) 5.8 % (2-12); NEUTROPHILS # (AUTO) 13.4 X10'3 (1.8-7.7); NEUTROPHILS % (AUTO) 91.8 % (42-75); NITRITES, URINE NEGATIVE (Neg); OCCULT BLOOD,URINE NEGATIVE (Neg); PLATELET COUNT 148 X10'3 (140-440); PROTEIN,URINE TRACE mg/dl (Neg); RED BLOOD COUNT 4.81 X10'6 (4.20-5.60); RED CELL DISTRIBUTION WIDTH 14.1 % (11.5-14.5); WHITE BLOOD COUNT 14.6 X10'3 (4.5-11.0)
[2020-09-30 02:46] LABS: UA COLLECTION TYPE NON-SPECIFIED
[2020-09-30 02:47] LABS: BACTERIA,URINE FEW /HPF (Neg); RBC,URINE 0-2 /HPF (0-2); SQUAMOUS EPITHELIAL CELL,UR MODERATE /LPF (FEW); WBC,URINE 0-4 /HPF (0-4)
[2020-09-30 02:50] LABS: ALANINE AMINOTRANSFERASE 72 U/L (12-78); ALBUMIN 3.5 G/DL (3.4-5.0); ALKALINE PHOSPHATASE 210 IU/L (46-116); ANION GAP 11 (8-16); ASPARTATE AMINO TRANSFERASE 157 U/L (10-37); BILIRUBIN,TOTAL 1.5 MG/DL (0.1-1.0); BLOOD UREA NITROGEN 16 MG/DL (7-18); BUN/CREATININE RATIO 15.1 (6.6-38.0); CALCIUM 8.2 MG/DL (8.5-10.1); CHLORIDE 98 MMOL/L (99-107); CREATININE 1.06 MG/DL (0.40-0.90); GLUCOSE 166 MG/DL (70-104); LIPASE 87 U/L (73-393); POTASSIUM 4.4 MMOL/L (3.5-5.1); SODIUM 137 MMOL/L (135-145); TOTAL CARBON DIOXIDE 28.5 MMOL/L (24-32); TOTAL PROTEIN 6.9 G/DL (6.4-8.2); eGFR 53 ML/MIN
[2020-09-30] MEDS ORDERED: iohexol 350MG/ML 100ml bottle IV ONE (03:55)
[2020-09-30] MEDS ORDERED: CefTRIAXone 2gm/D5W 50ml BAG 50 ML IV ONE (05:35)
[2020-09-30] MEDS ORDERED: DEXT5TAB26 PO (05:58)
[2020-09-30] MEDS ORDERED: DESV50TA PO (05:59)
[2020-09-30] MEDS ORDERED: PROP10TA10 PO ×2 (06:00→06:01)
[2020-09-30] MEDS: morphine 4 MG/ML inj SYRINge IV PRN ×2 (06:07→08:08)
[2020-09-30] MEDS ORDERED: morphine 2 MG/ML inj. syringe IV ONE (07:35)
[2020-09-30] MEDS ORDERED: ondansetron/PF 4mg/2ml inj IV ONE (08:05)
[2020-09-30] MEDS ORDERED: HYDROcodone/acetaminophen 10/325mg tab PO PRN (08:25)
[2020-09-30] MEDS ORDERED: potassium Cl 20 mEq SR tablet PO PRN ×2 (08:25)
[2020-09-30] MEDS ORDERED: magnesium hydroxide 30ml (MOM) UD suspension PO PRN (08:25)
[2020-09-30] MEDS ORDERED: magnesium 4gm in 100ml NS 100 ML IV PRN (08:25)
[2020-09-30] MEDS ORDERED: potassium Cl 40MEQ/1/2NS 520ml 520 ML IV PRN ×2 (08:25)
[2020-09-30] MEDS ORDERED: magnesium 2GM in 50ml NS 50 ML IV PRN (08:25)
[2020-09-30] MEDS ORDERED: mag hydrox/Alum hydrox/simeth 30ml oral suspension PO PRN (08:25)
[2020-09-30] MEDS ORDERED: ciprofloxacin lact 400MG/200ML 200 ML IV SCH (08:25)
[2020-09-30] MEDS ORDERED: acetaminophen 325mg tablet PO PRN ×2 (08:25)
[2020-09-30] MEDS ORDERED: bisacodyl 10mg suppository rectal RC PRN (08:25)
[2020-09-30] MEDS ORDERED: magnesium Cl slow-release 64mg tablet PO PRN (08:25)
[2020-09-30] MEDS ORDERED: HYDROcodone/acetaminophen 5mg/325mg tablet PO PRN (08:25)
[2020-09-30 08:38] LABS: C DIFF ANTIGEN NEGATIVE (NEGATIVE); C DIFF SPECIMEN=DIARRHEA? ACCEPTABLE; C DIFFICILE TOXINS A&B NEGATIVE (Neg)
[2020-09-30] MEDS ORDERED: famotidine/PF 10 mg/ml inj IV ONE (09:45)
[2020-09-30] MEDS ORDERED: pantoprazole 40 MG vial IV ONE (09:45)
[2020-09-30] MEDS ORDERED: sucralfate 1gm/10ml UD suspension PO ONE (09:45)
[2020-09-30] MEDS: normal saline 1000ml 1,000 ML IV SCH ×2 (09:49→20:15)
--- NOTE | 2020-09-30 10:02 | NUR ---
DR GUERRA AT BEDSIDE: HE IS DISCONTNIUING CIPRO DUE TO HER HX OF SPONATEOUS TENDON RUPTURE
[2020-09-30] MEDS ORDERED: LORazepam 1 MG tablet PO PRN (10:25)
[2020-09-30 11:15] LABS: BASOPHILS % (AUTO) 0.1 % (0-1); EOSINOPHILS % (AUTO) 0.1 % (0-6); HEMATOCRIT 39.9 % (35.0-45.0); HEMOGLOBIN 13.4 g/dl (12.0-16.0); LYMPHOCYTES # (AUTO) 1.1 X10'3 (1.1-4.8); LYMPHOCYTES % (AUTO) 10.8 % (21-51); MEAN CORPUSCULAR HEMOGLOBIN 30.5 PG (27.0-31.0); MEAN CORPUSCULAR HGB CONC 33.5 g/dL (33.0-36.5); MEAN PLATELET VOLUME 8.9 FL (7.4-10.4); MONOCYTES # (AUTO) 0.8 X10'3 (0-0.9); MONOCYTES % (AUTO) 7.9 % (2-12); NEUTROPHILS # (AUTO) 8.1 X10'3 (1.8-7.7); NEUTROPHILS % (AUTO) 81.1 % (42-75); PLATELET COUNT 134 X10'3 (140-440); RED BLOOD COUNT 4.38 X10'6 (4.20-5.60); RED CELL DISTRIBUTION WIDTH 14.5 % (11.5-14.5)
[2020-09-30 11:33] LABS: ALANINE AMINOTRANSFERASE 413 U/L (12-78); ALBUMIN 3.2 G/DL (3.4-5.0); ALKALINE PHOSPHATASE 376 IU/L (46-116); ANION GAP 11 (8-16); ASPARTATE AMINO TRANSFERASE 872 U/L (10-37); BILIRUBIN,TOTAL 4.5 MG/DL (0.1-1.0); BLOOD UREA NITROGEN 14 MG/DL (7-18); BUN/CREATININE RATIO 15.2 (6.6-38.0); CALCIUM 8.2 MG/DL (8.5-10.1); CHLORIDE 100 MMOL/L (99-107); CREATININE 0.92 MG/DL (0.40-0.90); GLUCOSE 112 MG/DL (70-104); POTASSIUM 3.9 MMOL/L (3.5-5.1); SODIUM 139 MMOL/L (135-145); TOTAL CARBON DIOXIDE 27.8 MMOL/L (24-32); TOTAL PROTEIN 6.5 G/DL (6.4-8.2); eGFR 63 ML/MIN
[2020-09-30] MEDS ORDERED: proCHLORperazine 10 MG/2 ml inj IV ONE (11:40)
[2020-09-30] MEDS: sucralfate 1gm/10ml UD suspension PO SCH ×3 (11:46→20:30)
--- NOTE | 2020-09-30 12:39 | NUR ---
PAGED DR GUERRA DISCUSSED RECENT LABS INCLUDING LACTATE AND LIVER PANEL, ORDERS: 3 LITERS NS, HEPATITS PANEL, LIVER ULTRASOUND DR TREY ROGERS
[2020-09-30] MEDS ORDERED: normal saline 1000ML IV soln IV ONE (12:45)
[2020-09-30] MEDS: propranolol 10mg tablet PO SCH ×2 (12:57→20:59)
--- NOTE | 2020-09-30 15:00 | NUR ---
PHONE REPORT TO CYNDI HARPER; DAPHNIE TO GO TO ROOM 3009 ON TELE ON KIMI WITH RN
[2020-09-30 15:42] VITALS: BP 155/79
[2020-09-30] MEDS ORDERED: metroNIDAZOLE-Flagyl 500mg/NS 100 ML IV SCH (16:00)
--- NOTE | 2020-09-30 17:56 | NUR ---
PAGER ID: [phone] MESSAGE: [phone] REGLA REBOLLEDOA, [employer] SOUND TECH SAID THAT SHE WILL NOT BE DOING THE ULTRA SOUND TONIGHT BECAUSE IT WASNT PUT IN STAT. I DID TELL HER THAT SHE WAS REALLY SICK AND WE NEEDED THOSE RESULTS. YCNDI 1943
[2020-09-30 18:00] VITALS: BP 131/58
[2020-09-30 18:37] LABS: PARTIAL THROMBOPLASTIN TIME 28 SECONDS (22-32)
--- NOTE | 2020-09-30 19:23 | NUR ---
Patient in room PCU 3009. I have received report from Ruby/Robby HARPER and had the opportunity to ask questions and assume patient care.
[2020-09-30] MEDS: K and/or MAG REPLACEMENT MC SCH (20:00)
[2020-09-30] MEDS: vancomycin/NS 1 GM ADD-VANTAGE 250 ML IV SCH (20:28)
[2020-09-30] MEDS: lactobacillus rhamnosus 10,000 MMU CELLS/CAPSULE PO SCH (20:29)
[2020-09-30] MEDS: potassium Cl 20 mEq SR tablet PO SCH (20:29)
[2020-09-30] MEDS: heparin, porcine 5000 units/ml vial SQ SCH (20:35)
--- NOTE | 2020-09-30 20:59 | NUR ---
Pt. agreed to take Inderal 20mg this HS as this is her home regimen.
[2020-09-30] MEDS ORDERED: propranolol 10mg tablet PO SCH (21:00)
--- NOTE | 2020-09-30 21:06 | NUR ---
Paged Dr. Pederson due to patients abd pain. Thorp 5mg q4 ordered and morphine 2mg IV q6 ordered.
[2020-09-30] MEDS: ondansetron/PF 4mg/2ml inj IV PRN (21:30)
[2020-09-30] MEDS: HYDROcodone/acetaminophen 5mg/325mg tablet PO PRN (21:31)
[2020-09-30] MEDS: temazepam 15mg capsule PO PRN (21:58)
[2020-09-30 22:00] VITALS: BP 115/52
[2020-10-01] MEDS: piperacillin/tazo 3.375gm/50ml 50 ML IV SCH ×4 (00:31→23:19)
[2020-10-01 02:00] VITALS: BP 136/62
[2020-10-01] MEDS: HYDROcodone/acetaminophen 5mg/325mg tablet PO PRN ×2 (02:18→20:15)
[2020-10-01] MEDS: normal saline 1000ml 1,000 ML IV SCH ×3 (03:56→23:19)
[2020-10-01] MEDS: LORazepam 0.5 MG tablet PO PRN ×2 (03:56→16:45)
[2020-10-01] MEDS: vancomycin/NS 1 GM ADD-VANTAGE 250 ML IV SCH ×2 (05:55→17:42)
--- NOTE | 2020-10-01 06:33 | NUR ---
Problems reprioritized. Patient report given, questions answered & plan of care reviewed with Adrianne HARPER.
--- NOTE | 2020-10-01 06:51 | NUR ---
Patient in room PCU 3009. I have received report from Ryan HARPER and had the opportunity to ask questions and assume patient care.
[2020-10-01 07:00] VITALS: BP 150/75
[2020-10-01 07:20] LABS: BASOPHILS % (AUTO) 0.3 % (0-1); EOSINOPHILS % (AUTO) 1.8 % (0-6); HEMATOCRIT 30.3 % (35.0-45.0); LYMPHOCYTES # (AUTO) 0.8 X10'3 (1.1-4.8); LYMPHOCYTES % (AUTO) 32.2 % (21-51); MEAN CORPUSCULAR HEMOGLOBIN 30.8 PG (27.0-31.0); MEAN CORPUSCULAR HGB CONC 32.9 g/dL (33.0-36.5); MEAN CORPUSCULAR VOLUME 93.5 FL (78-98); MEAN PLATELET VOLUME 9.1 FL (7.4-10.4); MONOCYTES # (AUTO) 0.2 X10'3 (0-0.9); MONOCYTES % (AUTO) 8.7 % (2-12); NEUTROPHILS # (AUTO) 1.4 X10'3 (1.8-7.7); PLATELET COUNT 76 X10'3 (140-440); RED BLOOD COUNT 3.24 X10'6 (4.20-5.60); RED CELL DISTRIBUTION WIDTH 14.8 % (11.5-14.5)
--- NOTE | 2020-10-01 07:26 | NUR ---
Patient in room PCU 3009. I have received report from Ryan HARPER and had the opportunity to ask questions and assume patient care.
[2020-10-01 07:37] LABS: ALANINE AMINOTRANSFERASE 306 U/L (12-78); ALBUMIN 2.4 G/DL (3.4-5.0); ALBUMIN/GLOBULIN RATIO 0.9 (1.1-1.5); ALKALINE PHOSPHATASE 277 IU/L (46-116); ANION GAP 8 (8-16); ASPARTATE AMINO TRANSFERASE 289 U/L (10-37); BILIRUBIN,TOTAL 1.5 MG/DL (0.1-1.0); BLOOD UREA NITROGEN 5 MG/DL (7-18); BUN/CREATININE RATIO 6.5 (6.6-38.0); CALCIUM 7.9 MG/DL (8.5-10.1); CHLORIDE 108 MMOL/L (99-107); CHOLESTEROL 161 MG/DL (0-200); CREATININE 0.77 MG/DL (0.40-0.90); GLUCOSE 92 MG/DL (70-104); HDL CHOLESTEROL 79 MG/DL (35-60); LDL CHOLESTEROL 57 MG/DL (50-100); MAGNESIUM 1.6 MG/DL (1.5-2.4); PHOSPHORUS 2.3 MG/DL (2.3-4.5); POTASSIUM 3.7 MMOL/L (3.5-5.1); SODIUM 142 MMOL/L (135-145); TOTAL CARBON DIOXIDE 26.5 MMOL/L (24-32); TRIGLYCERIDES 48 MG/DL (20-135); eGFR 77 ML/MIN
[2020-10-01 07:47] LABS: WHITE BLOOD COUNT 2.5 X10'3 (4.5-11.0)
[2020-10-01 07:55] LABS: PLATELET ESTIMATE DECREASED; TOTAL CELLS COUNTED 100
[2020-10-01 07:56] LABS: POLYCHROMASIA FEW
[2020-10-01] MEDS: K and/or MAG REPLACEMENT MC SCH ×2 (08:00→20:00)
[2020-10-01] MEDS ORDERED: CefTRIAXone/D5W-Rocephin 1gm 50 ML IV SCH (08:00)
[2020-10-01] MEDS: heparin, porcine 5000 units/ml vial SQ SCH ×2 (08:00→20:00)
[2020-10-01] MEDS: pantoprazole 40 MG vial IV SCH (08:33)
[2020-10-01] MEDS: potassium Cl 20 mEq SR tablet PO SCH ×2 (08:34→20:16)
[2020-10-01] MEDS: morphine 2 MG/ML inj. syringe IV PRN ×2 (08:34→14:49)
[2020-10-01] MEDS: dextroamphetamine/amphetamine 5mg tablet PO SCH (08:35)
[2020-10-01] MEDS: lactobacillus rhamnosus 10,000 MMU CELLS/CAPSULE PO SCH ×2 (08:35→20:14)
[2020-10-01] MEDS: lisinopril 5mg tablet PO SCH (08:35)
[2020-10-01] MEDS: propranolol 10mg tablet PO SCH ×4 (08:36→23:18)
[2020-10-01] MEDS: ondansetron/PF 4mg/2ml inj IV PRN ×2 (08:49→14:51)
[2020-10-01] MEDS: sucralfate 1gm/10ml UD suspension PO SCH ×4 (09:50→20:17)
[2020-10-01] MEDS: thyroid, pork 30mg tablet PO SCH (09:58)
[2020-10-01 11:00] VITALS: BP 145/66
[2020-10-01 15:00] VITALS: BP 119/42
--- NOTE | 2020-10-01 16:30 | NUR ---
PAGER ID: [phone] MESSAGE: ANTONIA ROBLESMandeep [phone]. CAN I GET BENEDRYL FOR RICHELLE WILLARD 3247? COMPLAINING OF ITCHING FROM THE MORPHINE. THX
[2020-10-01 18:00] VITALS: BP 125/56
--- NOTE | 2020-10-01 18:19 | NUR ---
Problems reprioritized. Patient report given, questions answered & plan of care reviewed with Ryan Rn.
--- NOTE | 2020-10-01 18:20 | NUR ---
Problems reprioritized. Patient report given, questions answered & plan of care reviewed with Anthony HARPER.
--- NOTE | 2020-10-01 19:30 | NUR ---
Patient in room PCU 3009. I have received report from Adrianne HARPER and had the opportunity to ask questions and assume patient care.
--- NOTE | 2020-10-01 19:59 | NUR ---
Patient had a 1600 zosyn due but unable to obtain iv access. Notified pharmacy to retime medication since patient has an 0000 dose due as well. Pharmacy stated to non admin the 1600 dose and give the 0000 dose around 2300.
[2020-10-01] MEDS: temazepam 15mg capsule PO PRN (20:15)
[2020-10-01 22:00] VITALS: BP 118/44
[2020-10-01] MEDS: diphenhydrAMINE 25mg capsule PO PRN (23:18)
[2020-10-02] MEDS: HYDROmorphone inj. 0.5 MG/0.5 ML DISP.SYRIN IV PRN ×5 (01:14→20:29)
[2020-10-02 02:00] VITALS: BP 117/59
[2020-10-02] MEDS: LORazepam 0.5 MG tablet PO PRN (04:31)
[2020-10-02] MEDS: ondansetron/PF 4mg/2ml inj IV PRN ×3 (04:31→20:29)
[2020-10-02] MEDS ORDERED: VANCOMYCIN LEVEL IV ONE (05:30)
[2020-10-02 06:00] VITALS: BP 149/64
--- NOTE | 2020-10-02 06:18 | NUR ---
Problems reprioritized. Patient report given, questions answered & plan of care reviewed with Adrianne HARPER.
--- NOTE | 2020-10-02 06:23 | NUR ---
Patient in room PCU 3009. I have received report from Ryan HARPER and had the opportunity to ask questions and assume patient care.
[2020-10-02 06:55] LABS: BASOPHILS % (AUTO) 0.5 % (0-1); EOSINOPHILS # (AUTO) 0.1 X10'3 (0-0.9); HEMATOCRIT 34.3 % (35.0-45.0); HEMOGLOBIN 11.3 g/dl (12.0-16.0); LYMPHOCYTES % (AUTO) 34.6 % (21-51); MEAN CORPUSCULAR HEMOGLOBIN 30.9 PG (27.0-31.0); MEAN CORPUSCULAR HGB CONC 33.1 g/dL (33.0-36.5); MEAN CORPUSCULAR VOLUME 93.3 FL (78-98); MEAN PLATELET VOLUME 9.2 FL (7.4-10.4); MONOCYTES # (AUTO) 0.3 X10'3 (0-0.9); MONOCYTES % (AUTO) 9.4 % (2-12); NEUTROPHILS # (AUTO) 1.5 X10'3 (1.8-7.7); NEUTROPHILS % (AUTO) 53.5 % (42-75); PLATELET COUNT 84 X10'3 (140-440); RED BLOOD COUNT 3.68 X10'6 (4.20-5.60); RED CELL DISTRIBUTION WIDTH 14.8 % (11.5-14.5); WHITE BLOOD COUNT 2.8 X10'3 (4.5-11.0)
[2020-10-02] MEDS: thyroid, pork 30mg tablet PO SCH (07:16)
[2020-10-02] MEDS: propranolol 10mg tablet PO SCH ×4 (07:16→22:37)
[2020-10-02] MEDS: lisinopril 5mg tablet PO SCH (07:16)
[2020-10-02] MEDS: sucralfate 1gm/10ml UD suspension PO SCH ×4 (07:16→20:29)
[2020-10-02] MEDS: dextroamphetamine/amphetamine 5mg tablet PO SCH (07:17)
[2020-10-02] MEDS: lactobacillus rhamnosus 10,000 MMU CELLS/CAPSULE PO SCH ×2 (07:17→19:24)
[2020-10-02] MEDS: potassium Cl 20 mEq SR tablet PO SCH ×2 (07:17→19:24)
[2020-10-02] MEDS: piperacillin/tazo 3.375gm/50ml 50 ML IV SCH ×3 (07:17→23:29)
[2020-10-02] MEDS: vancomycin/NS 1 GM ADD-VANTAGE 250 ML IV SCH (07:18)
[2020-10-02] MEDS: pantoprazole 40 MG vial IV SCH (07:18)
[2020-10-02] MEDS: K and/or MAG REPLACEMENT MC SCH ×2 (08:00→20:00)
[2020-10-02] MEDS: heparin, porcine 5000 units/ml vial SQ SCH ×2 (08:00→19:27)
[2020-10-02 08:34] LABS: ALANINE AMINOTRANSFERASE 245 U/L (12-78); ALBUMIN 2.7 G/DL (3.4-5.0); ALKALINE PHOSPHATASE 247 IU/L (46-116); ANION GAP 7 (8-16); ASPARTATE AMINO TRANSFERASE 134 U/L (10-37); BILIRUBIN,TOTAL 0.8 MG/DL (0.1-1.0); BLOOD UREA NITROGEN 2 MG/DL (7-18); BUN/CREATININE RATIO 3.5 (6.6-38.0); CALCIUM 8.5 MG/DL (8.5-10.1); CHLORIDE 108 MMOL/L (99-107); CREATININE 0.57 MG/DL (0.40-0.90); GLUCOSE 93 MG/DL (70-104); MAGNESIUM 2.2 MG/DL (1.5-2.4); PHOSPHORUS 2.5 MG/DL (2.3-4.5); POTASSIUM 3.8 MMOL/L (3.5-5.1); SODIUM 143 MMOL/L (135-145); TOTAL CARBON DIOXIDE 27.8 MMOL/L (24-32); TOTAL PROTEIN 5.4 G/DL (6.4-8.2); VANCOMYCIN,TROUGH 9.1 UG/ML (6.0-14.0); eGFR > 90 ML/MIN
[2020-10-02 08:49] LABS: PLATELET ESTIMATE DECREASED; TOTAL CELLS COUNTED 100
[2020-10-02 08:50] LABS: HYPOCHROMASIA 1+
[2020-10-02 11:00] VITALS: BP 133/68
[2020-10-02] MEDS: normal saline 1000ml 1,000 ML IV SCH (13:29)
[2020-10-02 15:00] VITALS: BP 114/64
[2020-10-02 18:00] VITALS: BP 147/67
--- NOTE | 2020-10-02 18:58 | NUR ---
Patient in room PCU 3009. I have received report from Adrianne HARPER and had the opportunity to ask questions and assume patient care.
[2020-10-02] MEDS: VANCOmycin 1250MG/NS 250ml Bag 250 ML IV SCH (19:23)
[2020-10-02] MEDS: temazepam 15mg capsule PO PRN (19:23)
--- NOTE | 2020-10-02 19:28 | NUR ---
SQ heparin held due to low platelet count of 84.
[2020-10-02 22:00] VITALS: BP 150/64
[2020-10-02] MEDS: HYDROcodone/acetaminophen 5mg/325mg tablet PO PRN (22:36)
[2020-10-02] MEDS: diphenhydrAMINE 25mg capsule PO PRN (22:37)
[2020-10-03 02:00] VITALS: BP 106/55
[2020-10-03] MEDS: HYDROmorphone inj. 0.5 MG/0.5 ML DISP.SYRIN IV PRN ×2 (03:34→07:54)
[2020-10-03] MEDS: LORazepam 0.5 MG tablet PO PRN (03:43)
--- NOTE | 2020-10-03 06:10 | NUR ---
Problems reprioritized. Patient report given, questions answered & plan of care reviewed with Adrianne HARPER.
--- NOTE | 2020-10-03 06:35 | NUR ---
Patient in room PCU 3009. I have received report from Ryan HARPER and had the opportunity to ask questions and assume patient care.
[2020-10-03 07:00] VITALS: BP 98/46
[2020-10-03] MEDS ORDERED: pantoprazole 40mg Tablet.DR PO SCH (07:30)
[2020-10-03 07:52] LABS: BASOPHILS % (AUTO) 0.3 % (0-1); EOSINOPHILS # (AUTO) 0.1 X10'3 (0-0.9); EOSINOPHILS % (AUTO) 3.1 % (0-6); HEMATOCRIT 32.8 % (35.0-45.0); HEMOGLOBIN 11.1 g/dl (12.0-16.0); LYMPHOCYTES % (AUTO) 27.1 % (21-51); MEAN CORPUSCULAR HEMOGLOBIN 31.4 PG (27.0-31.0); MEAN CORPUSCULAR HGB CONC 33.8 g/dL (33.0-36.5); MEAN CORPUSCULAR VOLUME 92.8 FL (78-98); MEAN PLATELET VOLUME 9.4 FL (7.4-10.4); MONOCYTES # (AUTO) 0.4 X10'3 (0-0.9); MONOCYTES % (AUTO) 9.3 % (2-12); NEUTROPHILS # (AUTO) 2.3 X10'3 (1.8-7.7); NEUTROPHILS % (AUTO) 60.2 % (42-75); PLATELET COUNT 85 X10'3 (140-440); RED BLOOD COUNT 3.54 X10'6 (4.20-5.60); RED CELL DISTRIBUTION WIDTH 14.7 % (11.5-14.5); WHITE BLOOD COUNT 3.9 X10'3 (4.5-11.0)
[2020-10-03] MEDS: ondansetron/PF 4mg/2ml inj IV PRN (07:54)
[2020-10-03] MEDS: VANCOmycin 1250MG/NS 250ml Bag 250 ML IV SCH (07:54)
[2020-10-03] MEDS: sucralfate 1gm/10ml UD suspension PO SCH ×2 (07:54→11:21)
[2020-10-03] MEDS: propranolol 10mg tablet PO SCH (07:55)
[2020-10-03] MEDS: heparin, porcine 5000 units/ml vial SQ SCH (08:00)
[2020-10-03] MEDS: lisinopril 5mg tablet PO SCH (08:00)
[2020-10-03] MEDS: piperacillin/tazo 3.375gm/50ml 50 ML IV SCH (08:00)
[2020-10-03] MEDS: K and/or MAG REPLACEMENT MC SCH (08:00)
[2020-10-03] MEDS: lactobacillus rhamnosus 10,000 MMU CELLS/CAPSULE PO SCH (08:02)
[2020-10-03] MEDS: potassium Cl 20 mEq SR tablet PO SCH (08:03)
[2020-10-03] MEDS: dextroamphetamine/amphetamine 5mg tablet PO SCH (08:03)
[2020-10-03] MEDS: thyroid, pork 30mg tablet PO SCH (08:04)
[2020-10-03 08:08] LABS: ALANINE AMINOTRANSFERASE 163 U/L (12-78); ALBUMIN 2.4 G/DL (3.4-5.0); ALBUMIN/GLOBULIN RATIO 0.9 (1.1-1.5); ALKALINE PHOSPHATASE 210 IU/L (46-116); ANION GAP 6 (8-16); ASPARTATE AMINO TRANSFERASE 56 U/L (10-37); BILIRUBIN,TOTAL 0.6 MG/DL (0.1-1.0); BLOOD UREA NITROGEN 3 MG/DL (7-18); BUN/CREATININE RATIO 3.7 (6.6-38.0); CALCIUM 8.2 MG/DL (8.5-10.1); CHLORIDE 109 MMOL/L (99-107); CREATININE 0.82 MG/DL (0.40-0.90); GLUCOSE 88 MG/DL (70-104); MAGNESIUM 2.1 MG/DL (1.5-2.4); PHOSPHORUS 3.3 MG/DL (2.3-4.5); POTASSIUM 4.1 MMOL/L (3.5-5.1); SODIUM 145 MMOL/L (135-145); TOTAL CARBON DIOXIDE 29.9 MMOL/L (24-32); TOTAL PROTEIN 5.2 G/DL (6.4-8.2); eGFR 72 ML/MIN
[2020-10-03 08:11] LABS: HBSAG SCREEN Negative (Negative); HEP A AB, IGM Negative (Negative); HEPATITIS C ANTIBODY <0.1 s/co ratio (0.0-0.9)
--- NOTE | 2020-10-03 08:40 | NUR ---
Patient in room PCU 3009. I have received report from Ryan and had the opportunity to ask questions and assume patient care.
[2020-10-03] MEDS ORDERED: ONDA4TAB6 PO (09:35)
[2020-10-03] MEDS ORDERED: tizanidine 4mg tablet PO PRN (10:50)
[2020-10-03] MEDS ORDERED: HYDROcodone/acetaminophen 10/325mg tab PO PRN (10:50)
[2020-10-03 11:00] VITALS: BP 136/56
--- NOTE | 2020-10-03 11:58 | NUR ---
Patient stable for discharge per MD order, all discharge instructions reviewed with patient and all questions answered. New prescriptions faxed to pharmacy. PIV discontinued, cannula intact, telemetry discontinued, television equipment operator notified. All belongings collected and sent with patient. Patient picked up in private vehicle by family member, wheeled to lobby by staff.
[2020-10-04] MEDS ORDERED: VANCOMYCIN LEVEL IV ONE (06:30)
== END 2020-10-03 11:58 | disposition home or self-care (01) | DRG 442 ==
LOC: ER 01:42 → ED HOLD 08:25 → EDBEDREQTM 13:29 → EDBEDREQ 13:29 → EDBEDREQSVC 13:29 → OBSVTOIN 14:12 → PCU 3S 15:33
PROVIDERS: ADMIT Family Medicine; ATTEND Family Medicine
PROC: BW211ZZ Computerized Tomography (CT Scan) of Abdomen and Pelvis using Low Osmolar Contrast (ICD-10-PCS; principal; 2020-09-30)
DX: B17.9 Acute viral hepatitis, unspecified (principal); N17.9 Acute kidney failure, unspecified; R45.851 Suicidal ideations; D61.818 Other pancytopenia; B34.9 Viral infection, unspecified; E06.3 Autoimmune thyroiditis; E86.0 Dehydration; F43.10 Post-traumatic stress disorder, unspecified; F32.9 Major depressive disorder, single episode, unspecified; F41.9 Anxiety disorder, unspecified; G89.29 Other chronic pain; R74.01 Elevation of levels of liver transaminase levels; K21.9 Gastro-esophageal reflux disease without esophagitis; F45.8 Other somatoform disorders; Z20.822 Contact with and (suspected) exposure to COVID-19; E28.2 Polycystic ovarian syndrome; I08.1 Rheumatic disorders of both mitral and tricuspid valves; I10 Essential (primary) hypertension; I27.20 Pulmonary hypertension, unspecified; K76.0 Fatty (change of) liver, not elsewhere classified; Z87.11 Personal history of peptic ulcer disease; Z90.710 Acquired absence of both cervix and uterus; Z98.84 Bariatric surgery status; Z79.899 Other long term (current) drug therapy; Z88.8 Allergy status to other drugs, medicaments and biological substances; Z79.890 Hormone replacement therapy
CPT/HCPCS: 36415; 71045; 74177; 76700; 80053; 80061; 80074; 80202; 81001; 83605; 83690; 83735; 83880; 84100; 84145; 85007; 85025; 85610; 85730; 87040; 87045; 87046; 87324; 87449; 87635; 96374; 96375; 97110; 97116; 97163; 99285; C9113; G0378; J0696; J0780; J1170; J1200; J1644; J2060; J2270; J2405; J2543; J2765; J3370; J3490; J7030; Q0163; Q9967

== ENCOUNTER 2021-03-29 14:14 | Emergency (ER) | payer BC, MEDICARE ==
[~2021-03-29] VITALS: Ht 170.2 cm; Wt 118.2 kg
[~2021-03-29 14:14] MED LIST changes: -CELE-85 PO; +DESV50TA PO; +DEXT5TAB26 PO; -GABA600T13 PO; -LAMO100T PO; -LISI-790 PO; -LISI20TA28 PO; +LISI5TAB22 PO; -MELA5TAB12 PO; -METF500T PO; -METO-384 PO; -MIRT-116 PO; +ONDA4TAB6 PO; +POTA-188 PO; -POTA10TA10 PO; -PRAM0.5T12 PO; +PROP10TA10 PO; -TRAZ-256 PO
[2021-03-29] MEDS ORDERED: HYDROcodone/acetaminophen 5mg/325mg tablet PO ONE (18:30)
[2021-03-29 19:02] LABS: BASOPHILS % (AUTO) 0.4 % (0-1); EOSINOPHILS % (AUTO) 0.4 % (0-6); HEMATOCRIT 38.8 % (35.0-45.0); HEMOGLOBIN 12.9 g/dl (12.0-16.0); LYMPHOCYTES # (AUTO) 1.3 X10'3 (1.1-4.8); LYMPHOCYTES % (AUTO) 18.7 % (21-51); MEAN CORPUSCULAR HEMOGLOBIN 30.8 PG (27.0-31.0); MEAN CORPUSCULAR HGB CONC 33.4 g/dL (33.0-36.5); MEAN CORPUSCULAR VOLUME 92.3 FL (78-98); MEAN PLATELET VOLUME 8.5 FL (7.4-10.4); MONOCYTES # (AUTO) 0.4 X10'3 (0-0.9); MONOCYTES % (AUTO) 6.6 % (2-12); NEUTROPHILS % (AUTO) 73.9 % (42-75); PLATELET COUNT 185 X10'3 (140-440); RED CELL DISTRIBUTION WIDTH 15.2 % (11.5-14.5); WHITE BLOOD COUNT 6.7 X10'3 (4.5-11.0)
[2021-03-29 19:12] LABS: ALANINE AMINOTRANSFERASE 34 U/L (12-78); ALBUMIN 3.8 G/DL (3.4-5.0); ALKALINE PHOSPHATASE 118 IU/L (46-116); ANION GAP 12 (8-16); ASPARTATE AMINO TRANSFERASE 25 U/L (10-37); BILIRUBIN,TOTAL 0.7 MG/DL (0.1-1.0); BLOOD UREA NITROGEN 15 MG/DL (7-18); BUN/CREATININE RATIO 15.6 (6.6-38.0); CALCIUM 8.8 MG/DL (8.5-10.1); CHLORIDE 101 MMOL/L (99-107); CREATININE 0.96 MG/DL (0.40-0.90); GLUCOSE 93 MG/DL (70-104); POTASSIUM 3.4 MMOL/L (3.5-5.1); SODIUM 144 MMOL/L (135-145); TOTAL CARBON DIOXIDE 30.9 MMOL/L (24-32); TOTAL PROTEIN 7.5 G/DL (6.4-8.2); eGFR 60 ML/MIN
[2021-03-29] MEDS ORDERED: DOXY-411 PO (19:32)
[2021-03-29 20:58] VITALS: BP 166/72
[2021-03-29] MEDS ORDERED: diazepam 5mg tablet PO ONE (22:00)
[2021-03-29] MEDS ORDERED: acetaminophen 325mg tablet PO ONE (22:40)
== END 2021-03-29 22:48 | disposition home or self-care (01) ==
LOC: ER 14:15
DX: M79.604 Pain in right leg (principal); R50.9 Fever, unspecified; I10 Essential (primary) hypertension; K21.9 Gastro-esophageal reflux disease without esophagitis; G89.29 Other chronic pain; F41.9 Anxiety disorder, unspecified; F32.9 Major depressive disorder, single episode, unspecified; Z86.2 Personal history of diseases of the blood and blood-forming organs and certain disorders involving the immune mechanism; Z72.89 Other problems related to lifestyle; Z88.8 Allergy status to other drugs, medicaments and biological substances; Z79.899 Other long term (current) drug therapy
CPT/HCPCS: 36415; 73590; 80053; 83735; 84145; 85025; 93971; 99285

== ENCOUNTER 2025-02-11 13:48 | Outpatient (CLI) | payer MEDICARE ==
--- NOTE | 2025-02-11 14:46 | RADIOLOGY REPORT ---
CLINICAL INFORMATION: 64 years old, Female; INJURY OF HEAD. TECHNIQUE: Axial imaging was obtained through the brain without contrast. Coronal and sagittal reformatted images were obtained, reviewed, and stored. Images were reviewed in brain and bone windows. All CT scans at this medical facility are performed using dose modulation techniques as appropriate to a performed exam including the following: Automated exposure control was utilized; adjustment of the MA and/or KV according to patient size; and use of iterative reconstruction technique. CTDIvol = 43.11 mGy DLP = 702.55 mGy-cm COMPARISON: CT HEAD on DOS: 06/26/20 FINDINGS: There is no acute intracranial hemorrhage. No mass effect or midline shift. The ventricles and sulci are within normal limits in size for age. Basal cisterns are patent. The calvarium is unremarkable. Paranasal sinuses and mastoid air cells are clear. There is a small to moderate right frontoparietal scalp hematoma. IMPRESSION: 1. No CT evidence of acute intracranial abnormality. 2. Small to moderate right frontoparietal scalp hematoma.
== END 2025-02-11 23:59 | disposition home or self-care (01) ==
LOC: RAD 13:48
PROVIDERS: ATTEND Internal Medicine
DX: S00.03XA Contusion of scalp, initial encounter (principal); S09.90XA Unspecified injury of head, initial encounter; M25.541 Pain in joints of right hand; X58.XXXA Exposure to other specified factors, initial encounter; Y93.89 Activity, other specified; Y92.89 Other specified places as the place of occurrence of the external cause; Y99.8 Other external cause status
CPT/HCPCS: 70450